=== PATIENT | female | born 1960 | race Caucasian/White ===

== ENCOUNTER 2019-06-08 08:41 | Emergency (ER) | payer BC ==
--- NOTE | 2019-06-08 08:58 | ED ---
Upper Extremity Pain - HPI Summary HPI Summary: Patient is a 59-year-old female who presents emergency department for a left wrist injury that occurred yesterday. Patient states she slipped on ice outside and landed onto her left hand. No other injuries were sustained. Symptoms are mild are in severity. Moving and touching left wrist makes symptoms worse. S makes symptoms better. - History of Current Complaint Chief Complaint: EDExtremityUpper Stated Complaint: FALL-ARM INJURY PER PT Time Seen by Provider: 06/08/19 08:48 - Allergies/Home Medications Allergies/Adverse Reactions: Allergies Allergy/AdvReac Type Severity Reaction Status Date / Time No Known Allergies Allergy Verified 06/08/19 08:45 Home Medications: Home Medications Ibuprofen TAB* [Advil TAB*] 200 mg PO Q6H PRN 06/08/19 [History Confirmed ] PMH/Surg Hx/FS Hx/Imm Hx Previously Healthy: Yes Infectious Disease History: No Infectious Disease History: Denies: Traveled Outside the [place] in Last 30 Days - Family History Known Family History: Positive: None, Non-Contributory - Social History Occupation: Employed Full-time Lives: With Family Alcohol Use: Rare Substance Use Type: Reports: None Smoking Status (MU): Never Smoked Tobacco Review of Systems Positive: Other - left wrist pain Skin: Negative Positive: Headache. Negative: Weakness, Paresthesia, Numbness All Other Systems Reviewed And Are Negative: Yes Physical Exam Vital Signs On Initial Exam: Initial Vitals Temp Pulse Resp BP Pulse Ox 97.5 F 69 17 128/78 98 06/08/19 08:43 06/08/19 08:43 06/08/19 08:43 06/08/19 08:43 06/08/19 08:43 Procedures - Sedation Patient Received Moderate/Deep Sedation with Procedure: No - Splinting Left Hand-Made Type: orthoglass Splint: sugar-tong Pre-Proc Neuro Vasc Exam: normal Post-Proc Neuro Vasc Exam: normal Splint Applied by Provider: Aki Lafleur - Vital Signs Vital Signs Temp Pulse Resp BP Pulse Ox 06/08/19 08:43 97.5 F 69 17 128/78 98 - Laboratory Lab Statement: Any lab studies that have been ordered have been reviewed, and results considered in the medical decision making process. Course/Dx - Course Course Of Treatment: Patient with isolated left wrist injury. X-ray shows distal nondisplaced radial fracture. Sugar tong splint placed. Patient will call orthopedics today to make an appointment. Ice and elevate intermittently. Patient would like to continue with Tylenol or Motrin for pain as directed. Patient understands and agrees with plan. - Diagnoses Differential Diagnosis/HQI/PQRI: Positive: Fracture (Closed), Strain, Sprain Provider Diagnoses: Distal radial fracture Discharge ED - Sign-Out/Discharge Documenting (check all that apply): Patient Departure - Discharge Plan Condition: Improved Disposition: HOME Patient Education Materials: Arm Fracture in Adults (ED) Forms: *Work Release Referrals: Alejandro Rodgers MD [Medical Doctor] - Denis Ward NP [Primary Care Provider] - Additional Instructions: Call the orthopedic clinic today to schedule an appointment Keep splint in place Ice and elevate Tylenol or Motrin for pain as directed Return to ER if symptoms change or worsen - Billing Disposition and Condition Condition: IMPROVED Disposition: Home
[2019-06-08 09:53] VITALS: BP 126/79
== END 2019-06-08 09:52 | disposition home or self-care (01) ==
LOC: ED 08:41
DX: S52.502A Unspecified fracture of the lower end of left radius, initial encounter for closed fracture (principal); W00.0XXA Fall on same level due to ice and snow, initial encounter; Y92.9 Unspecified place or not applicable; M85.88 Other specified disorders of bone density and structure, other site; M18.12 Unilateral primary osteoarthritis of first carpometacarpal joint, left hand
CPT/HCPCS: 99282